=== PATIENT | female | born 1970 | race American Indian/Alaskan Native ===

== ENCOUNTER 2017-06-28 12:18 | Outpatient (CLI) | payer OTHER ==
--- NOTE | 2017-06-28 13:29 | XRay Report ---
Bilateral knee: History: Knee pain. Findings: Narrowing of the medial and patellofemoral compartment right and left knee joint. Sclerotic articular surfaces with peripheral osteophytes suggesting degenerative changes. No fracture. No soft tissue calcification. Fluid in the suprapatellar bursa right and left knee joint. Impression: Arthritic changes as detailed above. Fluid in the suprapatellar bursa.
== END 2017-06-28 12:19 | disposition home or self-care (01) ==
LOC: SPVIMAG 12:18
PROVIDERS: ATTEND Orthopaedic Surgery
DX: M17.0 Bilateral primary osteoarthritis of knee (principal)